=== PATIENT | female | born 1945 | race Caucasian/White ===

== ENCOUNTER 2017-05-16 05:17 | Emergency (ER) | payer OTHER ==
[~2017-05-16] VITALS: Ht 157.5 cm; Wt 90.7 kg
[2017-05-16 05:17] VITALS: BP_SYST 160
--- NOTE | 2017-05-16 05:17 | NUR ---
Patient to ER bed 5 to gown for evaluation. Side rails up. Report given to POLI SUMMERS.
--- NOTE | 2017-05-16 05:20 | NUR ---
ER Dr. MA at bedside examining patient.
--- NOTE | 2017-05-16 05:20 | NUR ---
PT STATES HER NOSE HAS BEEN BLEEDING FOR THE PAST 45MIN AND HAS NOT STOPPED. NO SOB OR DISTRESS. A/OX4, AFEBRILE. SAFETY PRECAUTIONS IN PLACE. WILL CONTINUE TO MONITOR.
--- NOTE | 2017-05-16 05:40 | NUR ---
PT NOSE CURRENTLY STOPPED BLEEDING. NO SOB OR DISTRESS. SAFETY PRECAUTIONS IN PLACE. WILL CONTINUE TO MONITOR.
[2017-05-16] MEDS ORDERED: SACU1TAB PO (05:50)
[2017-05-16] MEDS ORDERED: METO2.5T6 PO (05:50)
[2017-05-16] MEDS ORDERED: EZET10TA PO (05:50)
[2017-05-16] MEDS ORDERED: WARF2.5T2 PO (05:50)
[2017-05-16] MEDS ORDERED: ALLO100T91 PO (05:50)
[2017-05-16] MEDS ORDERED: OMEP40CA33 PO (05:50)
[2017-05-16] MEDS ORDERED: AMI200 PO (05:50)
[2017-05-16] MEDS ORDERED: DIGO125T79 PO (05:50)
[2017-05-16] MEDS ORDERED: POTA20TA83 PO (05:50)
[2017-05-16] MEDS ORDERED: CARV25TA55 PO (05:50)
[2017-05-16] MEDS ORDERED: ROSU20TA PO (05:50)
[2017-05-16] MEDS ORDERED: FURO-150 PO (05:50)
[2017-05-16] MEDS ORDERED: PRO20 PO (05:50)
[2017-05-16 07:00] LABS: BASOPHILS # (AUTO) 0.1 K/uL (0.0-0.2); BASOPHILS % (AUTO) 0.8 % (0.0-2.0); EOSINOPHILS # (AUTO) 0.2 K/uL (0.0-0.4); EOSINOPHILS % (AUTO) 2.1 % (0.0-4.0); HEMATOCRIT 38.6 % (36-48); HEMOGLOBIN 12.7 g/dL (12.0-16.0); LYMPHOCYTES # (AUTO) 1.5 K/uL (1.0-5.5); LYMPHOCYTES % (AUTO) 18.1 % (20.5-51.5); MEAN CORPUSCULAR HEMOGLOBIN 27 pg (27-31); MEAN CORPUSCULAR HGB CONC 33 % (32-36); MEAN CORPUSCULAR VOLUME 83 fL (79.0-98.0); MONOCYTES # (AUTO) 0.6 K/uL (0.0-1.0); MONOCYTES % (AUTO) 7.7 % (1.7-9.3); NEUTROPHILS # (AUTO) 5.6 K/uL (1.8-7.7); NEUTROPHILS % (AUTO) 71.3 % (40.0-70.0); PLATELET COUNT (AUTO) 166 K/uL (130-430); RED BLOOD CELL COUNT(AUTO) 4.65 MIL/uL (4.2-6.2); RED CELL DISTRIBUTION WIDTH 15.8 % (9.0-15.0)
[2017-05-16 07:17] LABS: ANION GAP 6 (5-15); CALCIUM 9.1 mg/dL (8.4-11.0); CHLORIDE 103 mmol/L (98-107); GLUCOSE 150 mg/dL (70-99); POTASSIUM 3.7 mmol/L (3.5-5.1); SODIUM SERUM 137 mmol/L (136-145); UREA NITROGEN, BLOOD 40 mg/dL (8-21)
[2017-05-16 07:20] LABS: ALANINE AMINOTRANSFERASE 41 U/L (12-78); ALBUMIN 3.5 g/dL (3.4-4.8); ASPARTATE AMINOTRANSFERASE 44 U/L (10-37); TOTAL BILIRUBIN 0.3 mg/dL (0.0-1.0)
--- NOTE | 2017-05-16 07:32 | NUR ---
Care was endorsed by Marylou, pt is resting comfortably with no noted distress or discomfort.
[2017-05-16 07:59] VITALS: BP_SYST 136
--- NOTE | 2017-05-16 07:59 | NUR ---
Patient given written and verbal discharge instructions and verbalizes understanding. ER MD discussed with patient the results and treatment provided. Patient in stable condition. ID arm band removed. No Rx given. Patient educated on pain management and to follow up with PMD. Pain Scale 0. Opportunity for questions provided and answered.
== END 2017-05-16 07:59 | disposition home or self-care (01) ==
LOC: SED 05:17
DX: R04.0 Epistaxis (principal); K21.9 Gastro-esophageal reflux disease without esophagitis; I50.9 Heart failure, unspecified; Z95.0 Presence of cardiac pacemaker; Z79.899 Other long term (current) drug therapy
CPT/HCPCS: 36415; 80053; 85025; 85610-TC; 85730-TC; 99284

== ENCOUNTER 2017-08-10 15:19 | Emergency (ER) | payer OTHER ==
[~2017-08-10] VITALS: Ht 157.5 cm; Wt 88.5 kg
[~2017-08-10 15:19] MED LIST: ALLO100T91 PO; AMI200 PO; CARV25TA55 PO; DIGO125T79 PO; EZET10TA PO; FURO-150 PO; METO2.5T6 PO; OMEP40CA33 PO; POTA20TA83 PO; PRO20 PO; ROSU20TA PO; SACU1TAB PO; WARF2.5T2 PO
[2017-08-10 15:20] VITALS: BP_SYST 125
[2017-08-10 16:25] VITALS: BP_SYST 123
== END 2017-08-10 16:22 | disposition home or self-care (01) ==
LOC: SED 15:19
DX: R04.0 Epistaxis (principal); K21.9 Gastro-esophageal reflux disease without esophagitis; I50.9 Heart failure, unspecified; F32.9 Major depressive disorder, single episode, unspecified; Z79.899 Other long term (current) drug therapy
CPT/HCPCS: 99282